=== PATIENT | male | born 1930 | race Caucasian/White ===

== ENCOUNTER 2016-03-15 12:25 | Inpatient (IN) | payer MEDICARE ==
[2016-03-15 12:47] LABS: ABSOLUTE NEUTROPHIL COUNT 8.1 K/mm3 (1.8-7.7); EOS % 0.1 % (0.9-2.9); HEMATOCRIT 40.2 % (32.0-52.0); HEMOGLOBIN 13.3 gm/l (14.0-18.0); IMM NEUT # 0.1 K/mm3 (0-0.2); IMM NEUT% 0.5 % (0-1); LYMPH # 0.7 (1.0-4.8); LYMPH % 7.7 % (15-45); MEAN CELL VOLUME 94.1 fl (80.0-94.0); MEAN CORPUSCULAR HEMOGLOBIN 31.1 pg (27.0-31.0); MEAN CORPUSCULAR HGB CONC 33.1 g/dl (33.0-37.0); MEAN PLATELET VOLUME 11.8 fl (7.4-10.4); MONO # 0.8 (0.0-0.8); MONO % 8.3 % (4-12); NEUT % 83.4 % (43-75); PLATELET COUNT 168 K/mm3 (130-400); RED CELL DISTRIBUTION WIDTH 13.1 % (11.5-14.5)
[2016-03-15] MEDS ORDERED: ALBUTEROL/IPRATROPIUM 2.5/0.5 MG 3 ML/EACH DOSE ONE (12:50)
[2016-03-15] MEDS ORDERED: SODIUM CHLORIDE 0.9% 1,000 ML ONE (12:52)
[2016-03-15 13:08] LABS: ALB/GLOB RATIO 0.8 (>1.0); ALBUMIN 3.2 gm/dL (3.5-5.7); CALCIUM 8.6 mg/dL (8.6-10.3)
--- NOTE | 2016-03-15 13:33 | RAD ---
EXAMINATION:CHEST - 2 VIEWS CLINICAL INDICATION: Weakness. COMPARISON: 01/22/2016. FINDINGS: The cardiomediastinal silhouette is unaltered from the prior examination. Very minimal aortic ectasia is noted. There is no adenopathy identified. There is no pleural effusion. There is increasing bibasilar coarsened reticular opacities left greater than right. These are slightly more conspicuous in comparison to the prior exam. No lobar consolidation is identified. The osseous structures are unremarkable for age. IMPRESSION: Increasing bibasilar infiltrates/interstitial change. Findings may reflect early basilar pneumonia and possible aspiration pneumonia. Less likely pulmonary edema.
[2016-03-15 13:53] LABS: INR 3.87; PROTHROMBIN TIME 43.7 SECONDS (9.3-11.4)
[2016-03-15] MEDS ORDERED: AZITHROMYCIN 500 MG VIAL ONE (14:35)
[2016-03-15] MEDS ORDERED: CEFTRIAXONE 1 GRAM DUPLEX 50 ML IV ONE (14:35)
[2016-03-15] MEDS ORDERED: SODIUM CHLORIDE 0.9% 250 ML IV ONE (14:44)
[2016-03-15] MEDS ORDERED: PREDNISONE 20 MG TABLET ONE (15:02)
[2016-03-15 15:53] VITALS: BMI 26.4
[2016-03-15] MEDS ORDERED: BLISTEX LIPSTICK 1 EACH TP PRN (16:27)
[2016-03-15] MEDS ORDERED: SODIUM CHLORIDE 0.9% 100 ML IV PRN (16:27)
[2016-03-15] MEDS ORDERED: MENTHOL/CETYLPYRD 1 EACH LOZENGE PO PRN (16:27)
[2016-03-15] MEDS ORDERED: BISACODYL 5 MG TABLET.EC PO PRN (16:27)
[2016-03-15] MEDS ORDERED: BISACODYL 10 MG SUP PR PRN (16:27)
[2016-03-15] MEDS ORDERED: ACETAMINOPHEN 325 MG TABLET PO PRN (16:27)
[2016-03-15] MEDS ORDERED: MAGNESIUM HYDROXIDE 30 ML UDCUP PO PRN (16:27)
[2016-03-15] MEDS ORDERED: SODIUM CHLORIDE 0.9% 1,000 ML IV SCH (16:30)
[2016-03-15] MEDS ORDERED: INSULIN REGULAR HUMAN SQ PRN (16:40)
[2016-03-15] MEDS ORDERED: ALBUTEROL NEB 2.5 MG/3 ML VIAL.NEB NEB PRN (16:40)
[2016-03-15] MEDS ORDERED: CEFTRIAXONE SODIUM 2 G in SODIUM CHLORIDE 0.9% 100 ML IV SCH (16:45)
[2016-03-15] MEDS ORDERED: CEFTRIAXONE 1 GRAM DUPLEX 1 G in Premix (D5W) 50 ml 1 EACH IV ONE (17:30)
[2016-03-15] MEDS: ALBUTEROL/IPRATROPIUM 2.5/0.5 MG 3 ML/EACH DOSE NEB PRN (17:35)
[2016-03-15] MEDS ORDERED: PUMP TUBING ONE (17:36)
--- NOTE | 2016-03-15 19:14 | CT ---
CHEST CT WITHOUT CONTRAST HISTORY: Pneumonia, recurrent. TECHNIQUE: No intravenous contrast administered; contiguous axial images were acquired from the thoracic inlet to the diaphragmatic hiatus. COMPARISON: Correlation against plain films of the same date. FINDINGS: THORACIC AORTA: Normal caliber. No evidence of dissection. HEART: Moderately extensive coronary artery calcifications. LUNGS: Scattered groundglass opacities of the upper lobes with a combination of airspace disease, presumed inflammatory nodules, and bronchiolar abnormality predominantly involving the lower lobes compatible with bilateral pneumonia. No gross pleural effusion. DULCE AND MEDIASTINUM: Subcarinal lymph node measures 3.2 cm in width. Precarinal lymph node measures 2.0 cm in width. Increased number of paratracheal and prevascular lymph nodes. ANTERIOR SOFT TISSUES: Minor gynecomastia.. MAJOR AIRWAYS: Diffuse bronchial wall thickening. STOMACH: Small hiatal hernia.. AXILLAE: No grossly enlarged lymph nodes. UPPER ABDOMEN:No gross mass effect. Nonspecific perirenal stranding. OSSEOUS STRUCTURES: Findings of mid thoracic disc degeneration. IMPRESSION: 1. Evidence of bilateral lower lobe pneumonia with superimposed bronchitic change. No obvious obstructive mass noted. Recommend radiographic follow-up to resolution. 2. Probable reactive mediastinal adenopathy. 3. Mild gynecomastia. 4. Small hiatal hernia. 5. Evidence of coronary artery disease.
[2016-03-15] MEDS ORDERED: INSULIN HUMAN NPH 70/REG 30 100 UNITS/1 ML UNIT (D0SE) SUB-Q SCH (20:00)
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
[2016-03-15] MEDS: INSULIN HUMAN NPH 70/REG 30 100 UNITS/1 ML UNIT (D0SE) SUB-Q SCH (20:55)
[2016-03-15] MEDS: LATANOPROST 0.005% 50 GTTS/2.5 ML BOT SOLN.DROP OU SCH (20:56)
[2016-03-15] MEDS: FLUTICASONE PROP 110 MCG 120 PUFF/INHALER IH SCH (20:56)
[2016-03-15] MEDS: DOCUSATE SODIUM 100 MG CAPSULE PO SCH (20:56)
[2016-03-15] MEDS: GUAIFENESIN 400 MG TABLET PO SCH (21:23)
[2016-03-16] MEDS: ALBUTEROL/IPRATROPIUM 2.5/0.5 MG 3 ML/EACH DOSE NEB PRN ×3 (04:05→16:27)
[2016-03-16 06:18] LABS: ABSOLUTE NEUTROPHIL COUNT 4.4 K/mm3 (1.8-7.7); HEMATOCRIT 34.2 % (32.0-52.0); HEMOGLOBIN 11.4 gm/l (14.0-18.0); IMM NEUT% 0.4 % (0-1); LYMPH # 0.5 (1.0-4.8); LYMPH % 9.8 % (15-45); MEAN CELL VOLUME 93.4 fl (80.0-94.0); MEAN CORPUSCULAR HEMOGLOBIN 31.1 pg (27.0-31.0); MEAN CORPUSCULAR HGB CONC 33.3 g/dl (33.0-37.0); MEAN PLATELET VOLUME 12.2 fl (7.4-10.4); MONO # 0.2 (0.0-0.8); MONO % 3.3 % (4-12); NEUT % 86.5 % (43-75); PLATELET COUNT 168 K/mm3 (130-400)
[2016-03-16 06:35] LABS: INR 3.29; PROTHROMBIN TIME 36.8 SECONDS (9.3-11.4)
[2016-03-16 06:44] LABS: CALCIUM 8.3 mg/dL (8.6-10.3)
--- NOTE | 2016-03-16 07:44 | PDOC43 ---
- Subjective Chief Complaint: CAP Patient reports feeling at least 80% better. Noise and other nursing activity woke him some, but otherwise slept pretty well. No new c/o. Breathing feeling good. - Objective Vital Signs Temperature 97.4 F 03/16/16 06:45 Pulse Rate 59 03/16/16 06:45 Respiratory Rate 20 03/16/16 06:45 Blood Pressure 121/71 03/16/16 06:45 O2 Saturation by Pulse Oximetry 91 03/16/16 06:45 Oxygen Delivery Method Room Air Oxygen Flow Rate 0 Vital Signs Last 12 Hours Temp Pulse Resp BP Pulse Ox 03/16/16 06:45 97.4 F 59 20 121/71 91 03/16/16 04:54 20 03/16/16 04:08 58 18 93 03/16/16 04:00 97.8 F 65 20 129/88 89 03/16/16 00:00 98.1 F 75 20 124/64 93 03/15/16 22:00 20 03/15/16 19:59 69 20 88 03/15/16 19:50 98.1 F 79 20 125/67 90 Intake and Output 03/14/16 03/15/16 03/16/16 23:59 23:59 23:59 Intake Total 243 200 Output Total 425 Balance 243 -225 General: Alert, Cooperative, No Acute Distress HEENT: Atraumatic Lungs: Clear to Auscultation Bilaterally (fairly good air movement bilat, no sigificant wheezes or crackles.) Cardiovascular: Irregular Abdomen: Soft, Normal Bowel Sounds, Non-Distended Extremities: No Edema, No Tenderness Neurological: Normal Speech Psych/Mental Status: Normal Affect, Normal Mood Laboratory 03/16/16 05:15 03/16/16 05:15 03/16/16 03/15/16 03/15/16 05:15 20:59 17:54 RBC 3.66 L MCH 31.1 H PT 36.8 H Estimated GFR 107 H POC Capillary Glucose 172 H 103 H Calcium 8.3 L Current Medications: Current meds reviewed in EMR. Active Medications Acetaminophen (Tylenol) 650 mg PO Q6H PRN PRN Reason: Pain or Temperature > 100.5 F Albuterol Sulfate (Ventolin Inhalation Solution (Dose)) 2.5 mg NEB Q4H PRN PRN Reason: Dyspnea Last Admin: 03/15/16 19:58 Dose: 2.5 mg Albuterol/Ipratropium (Duoneb) 3 ml NEB Q6H PRN PRN Reason: Wheezing Last Admin: 03/16/16 04:05 Dose: 3 ml Benzocaine/Menthol (Cepacol) 1 each PO PRN PRN PRN Reason: Sore Throat Bisacodyl (Dulcolax) 10 mg HI DAILY PRN PRN Reason: Constipation Bisacodyl (Dulcolax) 5 mg PO DAILY PRN PRN Reason: Constipation Docusate Sodium (Colace) 100 mg PO BID [facility] Last Admin: 03/15/16 20:56 Dose: 100 mg Fluticasone Propionate (Flovent Hfa 110 Mcg) 2 puff IH BID [facility] Last Admin: 03/15/16 20:56 Dose: 2 puff Furosemide (Lasix) 40 mg PO QAM [facility] Guaifenesin (Guiafenesin) 400 mg PO TID [facility] Last Admin: 03/15/16 21:23 Dose: 400 mg Azithromycin 250 mg/ Sodium (Chloride) 250 mls @ 250 mls/hr IV Q24H [facility] Sodium Chloride (Sodium Chloride 0.9%) 100 mls @ 25 mls/hr IV PRN PRN PRN Reason: Flush Ceftriaxone Sodium/Dextrose (Rocephin 2 Gram Premix) 50 mls @ 100 mls/hr IV Q24H [facility] Insulin Human Isoph/Insulin Regular (Novolin/Humulin 70/30 Dose) 5 units SUB-Q QPM [facility] Last Admin: 03/15/16 20:55 Dose: 5 units Insulin Human Isoph/Insulin Regular (Novolin/Humulin 70/30 Dose) 20 units SUB- Q QAM [facility] Insulin Human Regular (Novolin R (Dose)) 0 units SUB-Q AC [facility] PRN Reason: Protocol Latanoprost (Xalatan) 1 gtts OU BEDTIME [facility] Last Admin: 03/15/16 20:56 Dose: 1 gtts Levothyroxine Sodium (Levothroid) 125 mcg PO DAILY [facility] Lisinopril (Prinivil) 10 mg PO DAILY [facility] Magnesium Hydroxide (Milk Of Magnesia) 30 ml PO DAILY PRN PRN Reason: Constipation Multivitamins (One-A-Day) 1 tab PO DAILY [facility] Petrolatum/Paraffin/Mineral Oil (Blistex) 1 each TP PRN PRN PRN Reason: Dry and/or chapped lips Sodium Chloride (Normal Saline 10ml Flush) 10 ml IV Q8HR [facility] Last Admin: 03/16/16 00:10 Dose: Not Given Sodium Chloride (Normal Saline 10ml Flush) 10 ml IV PRN PRN Tamsulosin HCl (Flomax) 0.8 mg PO DAILY [facility] Verapamil HCl (Calan Sr) 180 mg PO DAILY [facility] Warfarin Sodium (Coumadin) 10 mg PO SUMOWETHSA@1600 [facility] Warfarin Sodium (Coumadin) 15 mg PO TUFR@1600 [facility] - Problems: Assessment/Plan (1) Community acquired bacterial pneumonia Status: Acute Assessment/Plan: On Rocephin, azithromycin started 03/15 WBC remains good. BP remains good, clinically improved. CT suggested pneumonia, uncomplicated. Continue on abx, consider for DC 03/17 (2) Elevated INR Status: Acute Assessment/Plan: on coumadin for atrial fib, anticipate holding today. Abx likely to temporarily affect warfarin 'sensitivity' (3) Diabetes mellitus type I Qualifiers: Diabetes mellitus complication status: with circulatory complication Diabetes mellitus complication detail: with peripheral angiopathy without gangrene Qualifier Code: (E10.51) Type 1 diabetes mellitus with diabetic peripheral angiopathy without gangrene Status: Chronic Assessment/Plan: of 60 years' duration (dx 1956) Continuing home regimen, add SS for elevated glucose. Glucose this am elevated (4) Chronic a-fib Status: Chronic Assessment/Plan: HR controlled, on coumadin (INR still sl high). (5) COPD (chronic obstructive pulmonary disease) Qualifiers: COPD type: unspecified COPD Qualifier Code: (J44.9) Chronic obstructive pulmonary disease, unspecified Status: Chronic Assessment/Plan: Continue nebs. Trying to avoid systemic steroids due to Diabetes. (6) Hypertension Qualifiers: Hypertension type: essential hypertension Qualifier Code: (I10) Essential (primary) hypertension Status: Chronic Assessment/Plan: controlled, continue meds. VTE Prophylaxis: anticoag on coumadin. Disposition: hope to return home, poss 03/17, but so far this am looks quite good (improving faster than expected!) and could consider for DC this afternoon
[2016-03-16] MEDS: INSULIN REGULAR HUMAN (DOSE) 100 UNITS/1 ML SUB-Q SCH ×5 (08:21→21:59)
[2016-03-16] MEDS: INSULIN HUMAN NPH 70/REG 30 100 UNITS/1 ML UNIT (D0SE) SUB-Q SCH ×2 (08:22→20:47)
[2016-03-16] MEDS ORDERED: [UNRECOGNIZED DRUG - OTHER] PO SCH (09:00)
[2016-03-16] MEDS ORDERED: INSULIN HUMAN NPH 70/REG 30 100 UNITS/1 ML UNIT (D0SE) SUB-Q SCH (09:00)
[2016-03-16] MEDS: VERAPAMIL HCL 180 MG PO SCH (09:14)
[2016-03-16] MEDS: TAMSULOSIN HCL 0.4 MG CAPSULE.DR PO SCH (09:15)
[2016-03-16] MEDS: DOCUSATE SODIUM 100 MG CAPSULE PO SCH ×3 (09:15→21:59)
[2016-03-16] MEDS: FUROSEMIDE 40 MG TABLET PO SCH (09:16)
[2016-03-16] MEDS: MULTIVITAMINS 1 TAB TABLET PO SCH (09:17)
[2016-03-16] MEDS: LEVOTHYROXINE SODIUM 125 MCG TABLET PO SCH (09:17)
[2016-03-16] MEDS: LISINOPRIL 10 MG TABLET PO SCH (09:17)
[2016-03-16] MEDS: FLUTICASONE PROP 110 MCG 120 PUFF/INHALER IH SCH ×2 (09:20→20:48)
[2016-03-16] MEDS: GUAIFENESIN 400 MG TABLET PO SCH ×3 (09:20→20:48)
[2016-03-16] MEDS ORDERED: CEFTRIAXONE 2 GRAM DUPLEX 50 ML IV SCH (15:00)
[2016-03-16] MEDS ORDERED: WARFARIN SODIUM 5 MG TABLET PO SCH (16:00)
[2016-03-16] MEDS ORDERED: PUMP TUBING ONE (16:18)
[2016-03-16] MEDS ORDERED: AZITHROMYCIN 250 MG in SODIUM CHLORIDE 0.9% 250 ML IV SCH (16:30)
[2016-03-16] MEDS ORDERED: AZITHROMYCIN 500 MG in SODIUM CHLORIDE 0.9% 250 ML IV SCH (16:30)
[2016-03-16] MEDS ORDERED: INSULIN REGULAR HUMAN (DOSE) 100 UNITS/1 ML SUB-Q SCH ×2 (16:59→17:21)
[2016-03-16] MEDS: LATANOPROST 0.005% 50 GTTS/2.5 ML BOT SOLN.DROP OU SCH (20:48)
[2016-03-16] MEDS ORDERED: INSULIN REGULAR HUMAN (DOSE) 100 UNITS/1 ML SUB-Q PRN (21:08)
[2016-03-17] MEDS ORDERED: DEXTROSE 50%-WATER 25 G SYRINGE IV ONE (00:20)
[2016-03-17] MEDS ORDERED: DEXTROSE 50%-WATER 25 G ONE (00:21)
[2016-03-17 06:02] LABS: ABSOLUTE NEUTROPHIL COUNT 6.1 K/mm3 (1.8-7.7); BASO % 0.1 % (0.2-1.0); EOS % 0.3 % (0.9-2.9); HEMATOCRIT 33.6 % (32.0-52.0); HEMOGLOBIN 11.5 gm/l (14.0-18.0); IMM NEUT # 0.1 K/mm3 (0-0.2); IMM NEUT% 0.6 % (0-1); LYMPH % 12.4 % (15-45); MEAN CELL VOLUME 91.6 fl (80.0-94.0); MEAN CORPUSCULAR HEMOGLOBIN 31.3 pg (27.0-31.0); MEAN CORPUSCULAR HGB CONC 34.2 g/dl (33.0-37.0); MEAN PLATELET VOLUME 11.8 fl (7.4-10.4); MONO # 0.8 (0.0-0.8); NEUT % 76.6 % (43-75); PLATELET COUNT 204 K/mm3 (130-400); RED CELL DISTRIBUTION WIDTH 12.9 % (11.5-14.5)
[2016-03-17 06:17] LABS: INR 3.06; PROTHROMBIN TIME 34.1 SECONDS (9.3-11.4)
[2016-03-17 06:20] LABS: CALCIUM 8.3 mg/dL (8.6-10.3)
[2016-03-17] MEDS: INSULIN REGULAR HUMAN (DOSE) 100 UNITS/1 ML SUB-Q SCH (07:35)
[2016-03-17] MEDS: DOCUSATE SODIUM 100 MG CAPSULE PO SCH (08:38)
[2016-03-17] MEDS: VERAPAMIL HCL 180 MG PO SCH (08:38)
[2016-03-17] MEDS: TAMSULOSIN HCL 0.4 MG CAPSULE.DR PO SCH (08:38)
[2016-03-17] MEDS: GUAIFENESIN 400 MG TABLET PO SCH (08:39)
[2016-03-17] MEDS: FLUTICASONE PROP 110 MCG 120 PUFF/INHALER IH SCH (08:39)
[2016-03-17] MEDS: FUROSEMIDE 40 MG TABLET PO SCH (08:40)
[2016-03-17] MEDS: LEVOTHYROXINE SODIUM 125 MCG TABLET PO SCH (08:40)
[2016-03-17] MEDS: MULTIVITAMINS 1 TAB TABLET PO SCH (08:41)
[2016-03-17] MEDS: LISINOPRIL 10 MG TABLET PO SCH (08:41)
[2016-03-17] MEDS: INSULIN HUMAN NPH 70/REG 30 100 UNITS/1 ML UNIT (D0SE) SUB-Q SCH (08:41)
[2016-03-17 11:10] VITALS: BP 129/67
--- NOTE | 2016-03-17 11:26 | PDOC5 ---
ADMIT DATE: 03/15/16 DISCHARGE DATE: 03/17/16 ADMISSION DIAGNOSES: Pneumonia PROCEDURES PERFORMED THIS HOSPITALIZATION: Chest CT showing bilateral pneumonia. CONSULTATIONS: OT/PT, patient returned to his baseline functional status. HOSPITAL COURSE: This is a 85 year old who presented with over a week of respiratory symptoms. CT scan demonstrated bilateral pneumonia and he had hypoxemia. He was treated with ceftriaxone and azithromycin, nebulizer treatments and O2. He had rapid resolution of his hypoxemia and return to his baseline functional status. On 03/17 he is stable to return home. - Exam Vital Signs Temperature 97.6 F 03/17/16 07:46 Pulse Rate 78 03/17/16 07:46 Respiratory Rate 16 03/17/16 07:46 Blood Pressure 132/72 03/17/16 07:46 O2 Saturation by Pulse Oximetry 92 03/17/16 07:46 Oxygen Delivery Method Room Air Oxygen Flow Rate 0 General: Alert, Oriented x3, Cooperative, No Acute Distress HEENT: Mucous membr. moist/pink Lungs: Other (scattered exp wheezes) Cardiovascular: Regular Rate and Rhythm Abdomen: Soft, Normal Bowel Sounds, No Tenderness, No Masses Extremities: Pulses Diminished but Palpable, No Edema Skin: Normal Color Neurological: Normal Speech Psych/Mental Status: Normal Mood - Results Laboratory 03/17/16 05:10 03/17/16 05:10 03/17/16 03/17/16 03/17/16 07:20 05:10 02:00 RBC 3.67 L MCH 31.3 H PT 34.1 H Estimated GFR 107 H POC Capillary Glucose 246 H 128 H Calcium 8.3 L 03/17/16 03/17/16 03/17/16 00:58 00:28 00:16 RBC MCH PT Estimated GFR POC Capillary Glucose 124 H 158 H 36 L* Calcium 03/16/16 03/16/16 03/16/16 20:47 16:55 11:32 RBC MCH PT Estimated GFR POC Capillary Glucose 253 H 396 H 349 H Calcium - Problems:Assessment/Plan (1) Community acquired bacterial pneumonia Status: Acute Assessment/Plan: Present on admit. Discharge on oral abx. (2) Elevated INR Status: Acute Assessment/Plan: on coumadin for atrial fib, anticipate holding while on azithromycin. Abx likely to temporarily affect warfarin 'sensitivity' (3) Anemia Status: Chronic Assessment/Plan: mild and not symptomatic, defer w/u to outpatient provider. 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 (5) Chronic a-fib Status: Chronic Assessment/Plan: HR controlled, on coumadin (INR still sl high). (6) COPD (chronic obstructive pulmonary disease) Qualifiers: COPD type: unspecified COPD Qualifier Code: (J44.9) Chronic obstructive pulmonary disease, unspecified Status: Chronic Assessment/Plan: Continue nebs. Trying to avoid systemic steroids due to Diabetes. (7) Hypertension Qualifiers: Hypertension type: essential hypertension Qualifier Code: (I10) Essential (primary) hypertension Status: Chronic Assessment/Plan: controlled, continue meds. (8) Hypothyroid Qualifiers: Hypothyroidism type: acquired Qualifier Code: (E03.9) Hypothyroidism, unspecified Status: Chronic Assessment/Plan: On replacement therapy, TSH moderately elevated due to acute illness, no change in dose. - Disposition: Disposition: discharge home today. - Discharge Plan Instruction Forms: Warfarin Therapy Education Prescriptions: Azithromycin 500 mg PO DAILY #1 tablet Cefprozil 250 mg [CEFZIL 250 MG TABLET (SHF)] 250 mg PO BID #14 tablet Discharge Medications: Your INR (protime) is elevated and you should NOT take warfarin while you are on antibiotics. You may need a higher dose of levothyroxine, talk to Dr. Vivas about this. Follow-Up: YAMILE Pagan [Outside] Brennon Vivas MD [Primary Care Provider] - In 7-10 days Condition: Good Disposition: Home
[2016-03-17] MEDS ORDERED: LATANOPROST 0.005% 50 GTTS/2.5 ML BOT SOLN.DROP OU SCH (11:45)
[2016-03-17] MEDS ORDERED: WARFARIN SODIUM 5 MG TABLET PO SCH (16:00)
[2016-03-19] MEDS ORDERED: WARFARIN SODIUM 5 MG TABLET PO SCH (16:00)
== END 2016-03-17 12:05 | disposition home or self-care (01) | DRG 194 ==
LOC: ED 12:25 → MS 14:33
PROVIDERS: ADMIT Family Medicine; ATTEND Family Medicine
DX: J15.9 Unspecified bacterial pneumonia (principal); J44.1 Chronic obstructive pulmonary disease with (acute) exacerbation; E10.51 Type 1 diabetes mellitus with diabetic peripheral angiopathy without gangrene; I48.2 Chronic atrial fibrillation; I10 Essential (primary) hypertension; E03.9 Hypothyroidism, unspecified; Z79.01 Long term (current) use of anticoagulants